=== PATIENT | female | born 1945 | race Caucasian/White ===

== ENCOUNTER 2023-04-05 22:51 | Outpatient (CLI) | payer MEDICARE, BC, SELFPAY | END 2023-04-05 22:52 | disposition home or self-care (01) | LOC: AMB 04-10 15:15 | PROVIDERS: Visit Provider Family Medicine | DX: S09.90XA Unspecified injury of head, initial encounter (principal); W01.0XXA Fall on same level from slipping, tripping and stumbling without subsequent striking against object, initial encounter; Y92.009 Unspecified place in unspecified non-institutional (private) residence as the place of occurrence of the external cause | CPT/HCPCS: A0425; A0429 ==